=== PATIENT | male | born 1955 | race Caucasian/White ===

== ENCOUNTER 2017-05-07 11:08 | Inpatient (IN) | payer SELFPAY ==
[~2017-05-07] VITALS: Ht 182.9 cm; Wt 96.1 kg
--- NOTE | ~2017-05-07 | OR ---
[facility] [address] [place] [address] Draft DATE OF PROCEDURE: 05/11/2017 at around 8 a.m. PROCEDURE Secondary closure of open appendectomy incision. INDICATIONS FOR PROCEDURES To assist with earlier healing in a patient who is now starting to turn the corner and looks like he will be discharged in a few days. DESCRIPTION OF PROCEDURE Informed consent was obtained. I took the old dressings out and then I used Betadine swab sticks to gently wipe the skin and the inside of the wound and once that was done, I numbed him up with 1% Xylocaine with Epinephrine, a total of about 16 mL and after that was done, I put sterile gloves on and secured to pre-placed 2-0 nylon aan-[id number]-fpfo-near suture serially. Once I did that, I used half-inch Steri-Strips also to help get skin apposition, put dry dressings on and then I told the nurses to rub the wound with Betadine b.i.d. We will see how this works for secondary closure and hopefully, this will achieve earlier healing and less wound care for the nursing staff and less frustration for the patient. Estimated blood loss was .5 mL. Sponge and needle counts were completed and correct before closing the wound. He should do well from this secondary closure. MD GUIDO Lakhani/Cy /[id number] cc: Dejuan Panchal MD PATIENT NAME: MERCY BAIRD OPERATIVE REPORT DATE OF : 53 PHYSICIAN: MANJINDER ROSA MD REPORT #: [id number] REPORT IS CONFIDENTIAL AND NOT TO BE RELEASED WITHOUT AUTHORIZATION
[~2017-05-07 11:08] MED LIST: ACULAR1 DROP OD; NORCO 5-325 TA1 EACH PO; PERCOCET 5-3251 EACH PO; TOBRAMYCIN5 ML OD; ZOVIRAX800 MG PO
[2017-05-08] MEDS ORDERED: ADVIL200 MG PO (11:14)
[2017-05-08] MEDS ORDERED: DAILY MULTIPLE1 EACH PO (11:14)
--- NOTE | 2017-05-08 15:05 | EKG ---
[facility] [address] [facility] [place] [address] Signed Sinus rhythm with blocked premature atrial complexes Otherwise normal ECG No previous ECGs available Confirmed by LEONARDA BARRAZA MD ([id number]) on 05/08/2017 3:04:53 PM Electronically Signed By: LEONARDA BARRAZA MD 05/08/17 1505 PATIENT NAME: MERCY BAIRD Electrocardiogram DATE OF : 53 PHYSICIAN: LEONARDA BARRAZA MD REPORT #: [id number] REPORT IS CONFIDENTIAL AND NOT TO BE RELEASED WITHOUT AUTHORIZATION
--- NOTE | 2017-05-12 06:46 | PN ---
[facility] [address] [place], [place] [address] Signed DATE OF SERVICE: 05/08/2017 This is a fellow who is in his early 60s and had advanced appendicitis yesterday through an open procedure and he had a little bit of complicated appendix. I thought he had pus in there, we cultured it, though his gram smears had no organisms. The cultures to date have no growth. He did have a leukocytosis and it looked like pus and also advanced appendicitis retrocecal. Overnight, he has done okay. He has been afebrile and his blood pressure was 122/67, pulse is 74, and he has been afebrile since surgery and his SaO2 is 96%, he is on 2 L nasal oxygen. His labs showed that his white count is 12.5, down from 14.5 with 89% neutrophils and it was 83% yesterday. Hematocrit 41, down from 50. I think he is a little bit dry going into this, platelet count is 137,000, was 202,000 and there is no evidence of bleeding out of his drain and his urine output looked a little bit slow. Over the day, he has put out 175, put down basically about 4 0 an hour, but I have run him at 200 an hour during the day for a liter, now we are going to cut him back to 150 and just watch him. The rest of his labs were reviewed. His sodium was 136, potassium 4.0, BUN 16, down from 21, creatinine 1 and his glucose was 135. His chem panel shows calcium to be 8 and the alk phos to be 25, total bili 1.2. He seems a little bit distended. His wound looks fine. I have done two dressing changes on him today and that is why I waited until to dictate this afternoon. This morning, had a little bit of capillary bleed from the fat, but that has stopped. All seems to be doing okay. He seems a little bit distended. He is not hungry and I am not going to feed him. He is ambulating well, doing incentive spirometry. This is basically a waiting game for his intestine to open up and to catch up his I's and O's. He may have been dehydrated going into this plus a little bit of advanced appendicitis could have stirred some bugs up. He is on Zosyn and Flagyl and I will add lactobacillus to him one pill b.i.d. with a sip of water. He is on Maalox. He is on Reglan and pain management. Basically, this is a waiting game and see where things go from here. I did tell the nurses if he were to vomit, to call me, other than that, I will be watching him every 3 to 4 hours until return him for the evening today and I am going to leave his Mckeon in for the time being and we also will start him probably on Lovenox 40 mg a day, start at 1700 tonight. MD GUIDO Lakhani/Cy /[id number] CC: Electronically Signed By: MANJINDER ROSA MD 05/12/17 0646 PATIENT NAME: MERCY BAIRD PROGRESS NOTE DATE OF : 53 PHYSICIAN: MANJINDER ROSA MD REPORT #: [id number] REPORT IS CONFIDENTIAL AND NOT TO BE RELEASED WITHOUT AUTHORIZATION [facility] [address] [place] [address] Signed Electronically Signed By: MANJINDER ROSA MD 05/12/17 0646 PATIENT NAME: BRIEMERCY PROGRESS NOTE DATE OF : 53 PHYSICIAN: MANJINDER ROSA MD REPORT #: [id number] REPORT IS CONFIDENTIAL AND NOT TO BE RELEASED WITHOUT AUTHORIZATION
--- NOTE | 2017-05-12 06:46 | OR ---
[facility] [address] [place], [place] [address] Signed DATE OF PROCEDURE: 05/07/17 PREOPERATIVE DIAGNOSIS: Appendicitis, possibly advanced. POSTOPERATIVE DIAGNOSIS: Probably ruptured appendix with pus in his pelvis. OPERATION: Open appendectomy. SURGEON: Manjinder Pinzon MD. ASSISTANTS: maintenance shop technician and circulating nurse. INDICATIONS FOR PROCEDURE Clinical diagnosis of appendicitis with leukocytosis. CT evidence is the same. Fluid in his pelvis. [place] that he needed this done. PROCEDURE Informed consent was obtained. He was taken to the operating room. Given a general anesthetic. He had been given Zosyn and Flagyl preoperatively. I told them to go ahead and give him another gram of Ancef when they would put him to sleep and shaved him, prepped and draped him in a sterile fashion. Appropriate time-out was accomplished. I then made a right lower quadrant McBurney type incision through the skin and subcutaneous tissue down to the rectus fascia, which was incised in a rear extension and external oblique fascia laterally. That time, I teased the rectus muscle medially. Entered the peritoneal cavity, got some yucky, pussy-looking material and cultured it. Irrigated a little bit, suctioned it out and then started working on exposure. Ended up having to extend the incision laterally about another inch and cut the muscles because this was a retrocecal appendix and it was kind of stuck and I had to free up the cecum a little bit from its peritoneal attachments in order to get to the appendix base. Did all that, took down the peritoneum with Bovie cautery and right angle clamp and Hemoclips and then I took down the mesoappendix with Hemoclips and Bovie cautery. Put 2 Hemoclips on to stay inside until I got down to the base of the appendix, which was nice and clean. I took a TA33.5 staplers, stapled across the base of the appendix. Fired it, held it for about 30 seconds. Put the clamp on the appendix, cut it all widely, bovied down the appendiceal stump and then inverted that stump with 3-0 oblique silk Lembert sutures. Irrigated everything inside through about 300 mL of saline. Inspected to make sure everything was nicely hemostatic. I then put a ribbon drain down into his pelvis. Put the sump sucker down and suctioned some yucky stuff and irrigated with another half-liter of saline or 750 mL of saline until that was coming out pretty clean. Made sure all my packs were out and then irrigated everything inside again. I then looked at the operative site, did not see any bleeding. I closed the posterior fascia peritoneum with 0 Vicryl on a UR needle after I put a 10-Primo drain in, but this was much smaller Electronically Signed By: MANJINDER PINZON MD 05/12/17 0646 PATIENT NAME: MERCY BAIRD OPERATIVE REPORT DATE OF : 53 PHYSICIAN: MANJINDER PINZON MD REPORT #: [id number] REPORT IS CONFIDENTIAL AND NOT TO BE RELEASED WITHOUT AUTHORIZATION [facility] [address] [place], [place] [address] Signed than oblique drains I am used to seeing and I think we need to figure out drains in the future, but anyhow, put that in along the right gutter down towards the pelvis, secured that with 3-0 silk that was through a separate stab wound and then I irrigated with antibiotic solution, a gram of Ancef and a couple of 100 mL of saline before I did the second fascial closure of 0 Vicryl on a UR needle. Once I got that secured, tied to itself, I irrigated with antibiotics again. Did not feel we should close the skin. Put 2-0 nylon on FSLX suture btm-fya-ogpr-near, sutures in and put Hemoclips on those. Packed the wound with wrung out moist saline and then put in an antibiotic solution again. Two of them in the wound couple of dry ones on top, ABD on top and then I put tape on the belly, so I could tape through the tape, it did not have gum or strap here apparently and told to hook drain up the suction and went to recovery room, explained everything to the nurses. Told to leave the Mckeon in, told to keep him on oxygen. Wrote his postop orders. Estimated blood loss was probably 5 mL, 10 at the very most. Sponge and needle counts were inspected for and reported to be correct multiple times. He tolerated it well. I will leave the Mckeon into night in case I stirred any bacteria, doing this if there was pus down in there. With a little bit of luck he will get well and might be home in 3-4 days. MD GUIDO Lakhani/Cy /[id number] cc: Dejuan Panchal MD Electronically Signed By: MANJINDER PINZON MD 05/12/17 0646 PATIENT NAME: MERCY BAIRD OPERATIVE REPORT DATE OF : 53 PHYSICIAN: MANJINDER PINZON MD REPORT #: [id number] REPORT IS CONFIDENTIAL AND NOT TO BE RELEASED WITHOUT AUTHORIZATION
--- NOTE | 2017-05-12 06:46 | PN ---
[facility] [address] [place], [place] [address] Signed DATE OF SERVICE: 05/09/2017 SUBJECTIVE: This is a fellow who is now about 48 hours postop appendectomy for advanced appendicitis. I thought he had pus in there. We cultured it, and he is growing a light growth of lactose medical receptionist susceptibility to follow. His gram smears did not show anything and his anaerobic so far has no growth. He has not had an easy postop course, in that he has abdominal distention, bowel tones were scant, drains has put out serous fluid. Wound is doing okay with open wound care. I have been checking his urine, I did that mostly yesterday. He has been afebrile, his pulse has been 75, 74, 79; respiratory rate 16; SaO2 is 95; blood pressure 135/82. His labs are reviewed and sodium was 134, potassium 3.9, BUN 13, creatinine 0.9. White count is 13.4 with 86% neutrophils that is a little bit up from yesterday, yesterday was in the 12 range, but I should say we have been chasing his urine, I think we are little behind on volume. He came in with hematocrit of 50. Again, he does not act toxic, but he just not get well over this. Again, acute abdomen series this morning, which shows some dilated small bowel. There is some air in his transverse colon. He is belching and he is distended and he has just about no bowel tones. I think he has a postop ileus, which is causing trouble. At the present time, I am going to discontinue his IV narcotics and put him on Toradol 15 mg IV q.6 hours. I will also add some Tylenol, if he has extra pain p.o. I am going to start him on Relistor 12 mg subcu every other day, Maalox down the NG tube and see what happens, maybe we will be able to get an NG tube, we could then decompress, it will be little bit more comfortable and hopefully this resolves on its own. Hopefully, we can get some sensitivity from the lab for his cultures and I will be having a hospitalist help me with him, just because he has thrown me a little bit of a curve ball. All and all, his wound looks fine, he does not look like he is in the great distress. He says he belches a lot and it hurts when he belches. This is kind of just a frustrating postop situation right now. ASSESSMENT: Postop day #2, complicated appendicitis, apparent ileus, I do not see any free air on x-rays or nothing like that that scares me. We will follow him closely. MD GUIDO Lakhani/Cy /[id number] Electronically Signed By: MANJINDER ROSA MD 05/12/17 0646 PATIENT NAME: MERCY BAIRD PROGRESS NOTE DATE OF : 53 PHYSICIAN: MANJINDER ROSA MD REPORT #: [id number] REPORT IS CONFIDENTIAL AND NOT TO BE RELEASED WITHOUT AUTHORIZATION [facility] [address] [place], [place] [address] Signed CC: Electronically Signed By: MANJINDER ROSA MD 05/12/17 0646 PATIENT NAME: ABHINAVJennMERCY PROGRESS NOTE DATE OF : 53 PHYSICIAN: MANJINDER ROSA MD REPORT #: [id number] REPORT IS CONFIDENTIAL AND NOT TO BE RELEASED WITHOUT AUTHORIZATION
--- NOTE | 2017-05-12 06:46 | HP ---
[facility] [address] [place], [place] [address] Signed DATE OF ADMISSION: 05/07/17 IDENTIFICATION This is a 62-year-old male, who has felt kind of bad since last night, who came to the ER and was evaluated by the ER physician, found to have apparent appendicitis with an elevated white count. Physical exam consistent with appendicitis and white count of 14.5, hematocrit 49, hemoglobin 16, platelets 262, 83% neutrophils. CMP and UA was okay. Coags are pending. Type screen and hold is pending. EKG was done. CT scan shows apparent appendicitis. I went over with the radiologist, little bit fluid in his pelvis and he also has some kind of yucky looking bibasilar in both of his lungs, went back and talked to the patient. He states that he had whooping cough years ago and had a cough for a whole year. This maybe something that is chronic. I certainly did not find anything on physical exam that sounded like pneumonia to me. Anyhow, I will get a PA and lateral chest x-ray prior to taking him to the operating room and we will likely have the hospitalist assist me with his care with that. PAST MEDICAL HISTORY He says he is allergic to nothing. He takes no medicines. He is an undoctored patient. I instructed him and his that at age 62, he ought to have a doctor and he ought to be scoped and ought to have routine medical management. He denies hypertension, diabetes, tuberculosis, seizures, or transfusion. PAST SURGICAL HISTORY He had a left inguinal hernia operation 15 years ago with tonsillectomy and vasectomies for surgical history. SOCIAL HISTORY He does not smoke. Drinks about 1 beer a week. He has no history of thromboembolic disease. He is . 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 His hobbies are working on motorcycles. REVIEW OF SYSTEMS Negative for KS, negative for angina, negative for stroke, negative for lung disease, but once I questioned him, he said he had cough that lasted about a year years ago and he said he had a whooping cough. Negative for GI problems except for the present illness, negative for musculoskeletal problems, negative for problems, negative for skin problem such as psoriasis. Negative for blood problem such as hepatitis. Negative for lymphatic problem, negative for endocrine problem, and negative for neurological problem. PHYSICAL EXAMINATION Electronically Signed By: MANJINDER ROSA MD 05/12/17 0646 PATIENT NAME: MERCY BAIRD HISTORY AND PHYSICAL DATE OF : 53 PHYSICIAN: MANJINDER ROSA MD REPORT #: [id number] REPORT IS CONFIDENTIAL AND NOT TO BE RELEASED WITHOUT AUTHORIZATION [address] [address] Signed VITAL SIGNS: I do not have his vital signs in front of me. His pulse is nice and normal. His blood pressure was okay in the ER. He has had pain medicines on board. HEAD, EYES, EARS, NOSE AND THROAT: Normal. NECK: Without jugular venous distention, masses, or bruits. CHEST: Clear to me. HEART: Regular rate and rhythm without rubs, gallops, or murmurs. ABDOMEN: Scaphoid. He has right lower quadrant tenderness and guarding at Sri's point. RECTAL: I did not do a rectal exam. : We will do the exam when he is in the OR, he has his underwear on, we'll put a Mckeon in when I get him in surgery. EXTREMITIES: Pedal pulse exam is normal. NEUROLOGIC: There is no motor, sensory, speech and ambulation. IMPRESSION This is a 62-year-old male with appendicitis. It does not appear ruptured, with a little bit of luck, it would be nonruptured and we will be able to get it out. I think with this odd bibasilar of the lung situation he will probably need to stay overnight, get the hospitalist to look at him, likely this is a chronic problem. I do not think this will keep me out of his belly right now and we are going to give him Zosyn and Flagyl preoperative a ntibiotics. PAR-Q is accomplished by myself with the patient and his in attendance confirming the diagnosis, the recommendation for appendectomy, my preference for open appendectomy, the expected contact of surgery, potential complications, which include, but are not limited to bleeding, infection, , local organ injury, needing further procedures, and my experience with the same, and the fact that I am a [facility] surgeon and I will be working until next Thursday; at which time if he is still here, we would have to pass him off to somebody else and the option of going to another institution if he does not like me or if feels better somewhere else, he decided that he will stay here. I have talked to the power plant operators supervisor and hopefully we will get this started here in the next hour. MD GUIDO Lakhani/Cy /[id number] Electronically Signed By: MANJINDER ROSA MD 05/12/17 0646 PATIENT NAME: MERCY BAIRD HISTORY AND PHYSICAL DATE OF : 53 PHYSICIAN: MANJINDER ROSA MD REPORT #: [id number] REPORT IS CONFIDENTIAL AND NOT TO BE RELEASED WITHOUT AUTHORIZATION [address] [address] Signed cc: Dejuan Panchal MD Electronically Signed By: MANJINDER ROSA MD 05/12/17 0646 PATIENT NAME: MERCY BAIRD HISTORY AND PHYSICAL DATE OF : 53 PHYSICIAN: MANJINDER ROSA MD REPORT #: [id number] REPORT IS CONFIDENTIAL AND NOT TO BE RELEASED WITHOUT AUTHORIZATION
[2017-05-15] MEDS ORDERED: NORCO 5-325 TA1 EACH PO (13:30)
[2017-05-15] MEDS ORDERED: IMODIUM A-D2 M2 PO (13:31)
--- NOTE | 2017-05-15 14:30 | DS ---
[facility] [address] [place], [place] [address] Signed DATE OF DISCHARGE: 05/15/17 FINAL DIAGNOSIS: Ruptured appendicitis. PROCEDURE: Open appendectomy. HISTORY OF PRESENT ILLNESS Garfield is a 62-year-old gentleman who had come to the emergency room with right lower quadrant abdominal pain. He had been evaluated by our ER physician including a CT scan. He was taken directly to the operating room by our locum surgeon, Dr. Pinzon. He underwent a standard open appendectomy. A small drain was left in place. The abdominal musculature was closed, but the skin and subcutaneous fat had been left open for couple of days. He was maintained on his Zosyn and Flagyl. Dr. Pinzon closed the wound after a couple of days. Garfield took quite a bit of IV fluids as his small intestine soaked up all the extra fluid. Eventually, he started to reverse the fluid. He regained his GI function and he was having voluminous amounts of liquid diarrhea for a couple of days, now that slowed down substantially. He has been off his antibiotic for 24 hours and he is doing quite well. He is tolerating a regular diet, ambulating in the hallways, and taking minimal amounts of pain medication. His incision is healing well without any local signs or symptoms of infection. The drain site is also dry at this point, and there are no local signs or symptoms of infection. Due to his progress here, we are going to be discharging him to home. DISCHARGE PLANS AND MEDICATIONS Garfield will be discharged home with a prescription for [place] 5/325 one-two tablets p.o. q.4-6 hour p.r.n. pain. We will dispense 60 tablets with no refills. He is welcome to try a little Imodium for his diarrhea, but his bowel will recover on its own and he should not need that. He has been using some adult Depends with respect to diarrhea and that has worked out fine. He should not do any heavy pushing, pulling, or lifting over 20 pounds for the next month. He is allowed to lift up to 50 pounds second month, and after that, no restrictions. 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 He can continue his regular diet. He asked me about riding motorcycles and that is out of the question for 2 months along with horses, any boating or other similar activities. We are going to leave his nylon sutures in place. We will have him back in the office in 5-7 days for follow-up. He has expressed understanding and agrees to above plan. Shabnam Oh MD Electronically Signed By: SHABNAM OH MD 05/15/17 1430 PATIENT NAME: GARFIELD BAIRD DISCHARGE SUMMARY DATE OF : 53 PHYSICIAN: SHABNAM OH MD REPORT #: [id number] REPORT IS CONFIDENTIAL AND NOT TO BE RELEASED WITHOUT AUTHORIZATION [facility] [address] [place], [place] [address] Signed /Cy /[id number] cc: Dr. Dejuan Panchal Electronically Signed By: SHABNAM OH MD 05/15/17 1430 PATIENT NAME: GARFIELD BAIRD DISCHARGE SUMMARY DATE OF : 53 PHYSICIAN: SHABNAM OH MD REPORT #: [id number] REPORT IS CONFIDENTIAL AND NOT TO BE RELEASED WITHOUT AUTHORIZATION
== END 2017-05-15 14:18 | disposition home or self-care (01) | DRG 339 ==
LOC: ED 11:08 → MS 15:25 → CCU 05-10 10:40 → MS 05-12 13:15
PROVIDERS: ADMIT Surgery
PROC: 0DTJ0ZZ Resection of Appendix, Open Approach (ICD-10-PCS; principal; 2017-05-07 15:30)
PROC: 0HQ7XZZ Repair Abdomen Skin, External Approach (ICD-10-PCS; 2017-05-11)
DX: K35.3 Acute appendicitis with localized peritonitis (principal); K91.3 Postprocedural intestinal obstruction; E86.0 Dehydration; R91.8 Other nonspecific abnormal finding of lung field; B96.20 Unspecified Escherichia coli [E. coli] as the cause of diseases classified elsewhere
CPT/HCPCS: 00840; 36415; 71020; 74022; 74177; 80048; 80053; 81001; 82150; 83605; 83690; 83735; 83880; 84100; 85025; 85610; 85730; 86850; 86900; 86901; 87045; 87046; 87070; 87075; 87077; 87177; 87186; 87205; 87209; 87493; 93005; 93010; 94762; 96361; 96365; 96368; 96375; 96376; 99285; J0690; J1170; J1450; J1650; J1885; J2212; J2405; J2543; J2704; J2765; J3010; J3480; J7030; J7040; J7060; J7120; Q9967

== ENCOUNTER 2019-06-20 22:32 | Emergency (ER) | payer MEDICARE, OTHER ==
[~2019-06-20] VITALS: Ht 182.9 cm; Wt 96.1 kg
--- OUTSIDE RECORDS SUMMARY | ~2019-06-20 | XMS | Clinical Summary ---
Demographics + + + | Address | [address] | | | [place] [address] | + + + | Home Phone | | + + + | Preferred Language | Unknown | + + + | Marital Status | | + + + | Yarsanism Affiliation | Unknown | + + + | Race | Unknown | + + + | Ethnic Group | Unknown | + + + Author + + + | Author | [facility] | | | and [place] | + + + | Organization | [facility] | | | and [place] | + + + | Address | Unknown | + + + | Phone | Unavailable | + + + Support + + +---------+ + | Name | Relationship | Address | Phone | + + +---------+ + | MIRANDA BAIRD | ECON | Unknown | | + + +---------+ + Care Team Providers + +------+ + | Care Customer Support Technician Name | Role | Phone | + +------+ + PCP | Unavailable | + +------+ + Allergies Not on File Medications Not on file Active Problems Not on file Social History + +-------+ +--------+------+ | Tobacco Use | Types | Packs/Day | Years | Date | | | | | Used | | + +-------+ +--------+------+ | Never Assessed | | | | | + +-------+ +--------+------+ + + + | Sex Assigned at | Date Recorded | | | | + + + | Not on file | | + + + + + + + | Job Start Date | Occupation | Industry | + + + + | Not on file | Not on file | Not on file | + + + + + + + + | Travel History | Travel Start | Travel End | + + + + + + | No recent travel history available. | + + Last Filed Vital Signs Not on file Plan of Treatment + + + + + | Health Maintenance | Due Date | Last Done | Comments | + + + + + | Vaccine: | | | | | Dtap/Tdap/Td (1 - | 3 | | | | Tdap) | | | | + + + + + | Vaccine: Zoster (1 | | | | | of 2) | 4 | | | + + + + + | Vaccine: | | | | | Pneumococcal 65+ | 9 | | | | Low/Medium Risk (1 | | | | | of 2 - PCV13) | | | | + + + + + | Vaccine: Influenza | | | | | (#1) | 9 | | | + + + + + Results Not on filefrom Last 3 Months"
--- OUTSIDE RECORDS SUMMARY | ~2019-06-20 | XMS | Encounter Summary ---
Demographics + + + | Address | [address] | | | [place] [address] | + + + | Home Phone | | + + + | Preferred Language | Unknown | + + + | Marital Status | Single | + + + | Sikhism Affiliation | Unknown | + + + | Race | Unknown | + + + | Ethnic Group | Other Race | + + + Author + + + | Author | [facility] | + + + | Organization | [facility] | + + + | Address | Unknown | + + + | Phone | Unavailable | + + + Support + + +---------+ + | Name | Relationship | Address | Phone | + + +---------+ + | None None | ECON | Unknown | Unavailable | + + +---------+ + Care Team Providers + +------+ + | Care Aviation Support Equipment Repairer Name | Role | Phone | + +------+ + PCP | Unavailable | + +------+ + Encounter Details +--------+ + + + + | Date | Type | Department | Care Team | Description | +--------+ + + + + | 06/20/ | Ancillary | [facility] Faculty | | | | 2004 | Registratio | Practice [address] | | | | | n | [facility] | | | | | | [place] [address] | | | | | | [phone] | | | +--------+ + + + + Social History + +-------+ +--------+------+ | Tobacco [...] recent travel history available. | + + documented as of this encounter Plan of Treatment Not on filedocumented as of this encounter Visit Diagnoses Not on filedocumented in this encounter"
--- OUTSIDE RECORDS SUMMARY | ~2019-06-20 | XMS | Encounter Summary ---
Demographics + + + | Address | [address] | | | [place] [address] | + + + | Home Phone | | + + + | Preferred Language | Unknown | + + + | Marital Status | Single | + + + | Congregation Affiliation | Unknown | + + + | Race | Unknown | + + + | Ethnic Group | Other Race | + + + Author + + + | Author | [facility] | + + + | Organization | [facility] | + + + | Address | Unknown | + + + | Phone | Unavailable | + + + Support + + +---------+ + | Name | Relationship | Address | Phone | + + +---------+ + | None None | ECON | Unknown | Unavailable | + + +---------+ + Care Team Providers + +------+ + | Care Tissue Coordinator Name | Role | Phone | + +------+ + PCP | Unavailable | + +------+ + Reason for Visit +--------+ + | Reason | Comments | +--------+ + | Other | Post OP Ruptured Appendicitis | +--------+ + Encounter Details +--------+ + + + + | Date | Type | Department | Care Team | Description | +--------+ + + + + | 05/10/ | Emergency | [facility] Emergency | | | | 2016 | | Department [address] | | | | | | [address] | | | | | | [facility] | | | | | | [place], [place] | | | | | | [address] | | | | | | [phone] | | | +--------+ + + + [...]
--- OUTSIDE RECORDS SUMMARY | ~2019-06-20 | XMS | Encounter Summary ---
Demographics + + + | Address | [address] | | | [place] [address] | + + + | Home Phone | | + + + | Preferred Language | Unknown | + + + | Marital Status | Single | + + + | Gnosticist Affiliation | Unknown | + + + | Race | Unknown | + + + | Ethnic Group | Other Race | + + + Author + + + | Author | [facility] | + + + | Organization | [facility] | + + + | Address | Unknown | + + + | Phone | Unavailable | + + + Support + + +---------+ + | Name | Relationship | Address | Phone | + + +---------+ + | None None | ECON | Unknown | Unavailable | + + +---------+ + Care Team Providers + +------+ + | Care Mounter Name | Role | Phone | + [...] + + | 05/10/ | Emergency | [facility] Emergency | | | | 2016 | | Department [address] | | | | | | [address] | | | | | | [facility] | | | | | | [place], [place] | | | | | | [address] | | | | | | [phone] | | | +--------+ + + + [...]
--- OUTSIDE RECORDS SUMMARY | ~2019-06-20 | XMS | Clinical Summary ---
Demographics + + + | Address | [address] | | | [place] [address] | + + + | Home Phone | | + + + | Preferred Language | Unknown | + + + | Marital Status | Single | + + + | Yarsanism Affiliation | Unknown | + + + | Race | Unknown | + + + | Ethnic Group | Other Race | + + + Author + + + | Author | [facility] | + + + | Organization | [facility] | + + + | Address | Unknown | + + + | Phone | Unavailable | + + + Support + + +---------+ + | Name | Relationship | Address | Phone | + + +---------+ + | None None | ECON | Unknown | Unavailable | + + +---------+ + Care Team Providers + +------+ + | Care Ecommerce Manager Name | Role | Phone | + +------+ + PCP | Unavailable | + +------+ + Source Comments [facility] is fully live on both [facility] Ambulatory and [facility] InPatient.[facility] Allergies Not on File Medications Not on [...] | + + + + + | Pneumococcal | | | | | vaccination (1 of 2 | 9 | | | | - PCV13) | | | | + + + + + | Influenza (Flu) | | | | | vaccination (#1) | 9 | | | + + + + + Results Not on filefrom Last 3 Months Insurance +-------+--------+ +--------+ + +------+ | Payer | Benefi | Subscriber | Effect | Phone | Address | Type | | | t Plan | ID | urban | | | | | | / | | Dates | | | | | | Group | | | | | | +-------+--------+ +--------+ + +------+ | MODA | MODA | [phone] | 09/14/19 | [phone] | [address] | PPO | | | [employer] | | 05-Pre | 4 | [phone] | | | | [place] | | sent | | [place], | | | | | | | | [place] [address] | | +-------+--------+ +--------+ + +------+ + +--------+ +--------+ + + | Guarantor Name | Accoun | Relation to | Date | Phone | Billing Address | | | t Type | Patient | of | | | | | | | | | | + +--------+ +--------+ + + | Garfield Hughes | Person | Self | [birth year] | [address] | | | al/Fam | | 1955 | [phone] | [place] [address] | | | coy | | | 3 (Home) | | + +--------+ +--------+ + +"
--- OUTSIDE RECORDS SUMMARY | ~2019-06-20 | XMS | Clinical Summary ---
Demographics + + + | Address | [address] | | | [place] [address] | + + + | Home Phone | | + + + | Preferred Language | Unknown | + + + | Marital Status | Single | + + + | Advent Affiliation | Unknown | + + + [...] Team Providers + +------+ + | Care Classer Name | Role | Phone | + +------+ + PCP | Unavailable | + +------+ + Source Comments [facility] is fully live on both [facility] Ambulatory and [facility] InPatient.[facility] Allergies Not on File Medications Not on [...] | MODA | [phone] | 09/14/19 | [phone] | [address] | PPO | | | [place] | | 05-Pre | 4 | [phone] | | | | [place] | | sent | | [place], | | | | | | | | [place] [address] | | +-------+--------+ +--------+ + +------+ + [...] | | al/Fam | | 1955 | [phone] | [place] [address] | | | coy | | | 3 (Home) | | + +--------+ +--------+ + +"
--- OUTSIDE RECORDS SUMMARY | ~2019-06-20 | XMS | Encounter Summary ---
Demographics + + + | Address | [address] | | | [place] [address] | + + + | Home Phone | | + + + | Preferred Language | Unknown | + + + | Marital Status | Single | + + + | Mormon Affiliation | Unknown | + + + | Race | Unknown | + + + | Ethnic Group | Other Race | + + + Author + + + | Organization | Unknown | + + + | Address | Unknown | + + + | Phone | Unavailable | + + + Support + + +---------+ + | Name | Relationship | Address | Phone | + + +---------+ + | None None | ECON | Unknown | Unavailable | + + +---------+ + Care Team Providers + +------+ + | Care Floor Care Specialist Name | Role | Phone | + +------+ + PCP | Unavailable | + +------+ + Encounter Details +--------+ + + + + | Date | Type | Department | Care Team | Description | +--------+ + + + + | 06/12/ | Results | | Other, Faculty | | | 2004 | Only | | [phone] | | +--------+ + + + + [...] Not on filedocumented as of this encounter Procedures + +--------+ + + + | Procedure Name | Priori | Date/Time | Associated Diagnosis | Comments | | | ty | | | | + +--------+ + + + | DERMATOPATHOLOGY(WET | Routin | 06/12/2005 | | Results for this | | [facility]) | e | | | procedure are in the | | | | | | results section. | + +--------+ + + + documented in this encounter Results DERMATOPATHOLOGY(WET [facility]) (06/12/2005) + + + + + + | Component | Value | Ref Range | Performed | Pathologist | | | | | At | Signature | + + + + + + | DERMATOPATH | SOURCE OF SPECIMEN:A | | | | | OLOGY(WET | FIRST TISSUE LEVEL | | | | | [place]) | [place] [id number] CLINICAL | | | | | | DESCRIPTION:Excision, | | | | | | lower back; irreg. | | | | | | pigmented patch; | | | | | | compound nevus; R/O | | | | | | melanoma. GROSS | | | | | | DESCRIPTION:Lower back, | | | | | | ellipse, 2.7 x 1.1 x 0.7 | | | | | | cm, inked, eight | | | | | | segments, | | | | | | threecassettes. | | | | | | MICROSCOPIC | | | | | | DESCRIPTION:There is a | | | | | | broad, fairly well | | | | | | circumscribed and | | | | | | symmetrical | | | | | | melanocyticneoplasm | | | | | | characterized primarily | | | | | | by numerous small round | | | | | | to oval nests ofvarying | | | | | | size and a few single | | | | | | melanocytes along the | | | | | | basal layer | | | | | | ofhyperplastic rete | | | | | | ridges. The | | | | | | melanocytic nuclei are | | | | | | small and | | | | | | relativelyuniform and | | | | | | most of the cells have | | | | | | pale cytoplasm. There | | | | | | are a fewcollections of | | | | | | similar appearing | | | | | | melanocytes in the | | | | | | fibrotic, thickened,and | | | | | | inflamed papillary | | | | | | dermis. 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 | | | | | | ZEB/jyi06/17/05Rendering | | | | | | Diagnostician: Mark Anthonyo | | | | | | n Mel Murray Jr., | | | | | | Stephaniei | | | | | | jaki Signed 06/17/2005 | | | | + + + + + + + + | Specimen | + + | | + + + + + | Narrative | Performed At | + + + | Ordered wes Hassan | | + + + + + + + + | Performing | Address | City/State/Zipcode | Phone Number | | Organization | | | | + + + + + | [facility] | [address], [address] | [place] [address] | | | DERMATOPATHOLOGY | Ariel Burks | | | + + + + + documented in this encounter Visit Diagnoses Not on filedocumented in this encounter"
--- OUTSIDE RECORDS SUMMARY | ~2019-06-20 | XMS | Encounter Summary ---
Demographics + + + | Address | [address] | | | [place] [address] | + + + | Home Phone | | + + + | Preferred Language | Unknown | + + + | Marital Status | Single | + + + | Yazdanism Affiliation | Unknown | + + + | Race | Unknown | + + + | Ethnic Group | Other Race | + + + Author + + + | Author | [facility] | + + + | Organization | [facility] | + + + | Address | Unknown | + + + | Phone | Unavailable | + + + Support + + +---------+ + | Name | Relationship | Address | Phone | + + +---------+ + | None None | ECON | Unknown | Unavailable | + + +---------+ + Care Team Providers + +------+ + | Care Cold Working Supervisor Name | Role | Phone | + +------+ + PCP | Unavailable | + +------+ + Encounter Details +--------+ + + + + | Date | Type | Department | Care Team | Description | +--------+ + + + + | 06/20/ | Ancillary | [facility] Faculty | | | | 2004 | Registratio | Practice [address] | | | | | n | [facility] | | | | | | [place] [address] | | | | | | [phone] | | | +--------+ + + + [...]
--- OUTSIDE RECORDS SUMMARY | ~2019-06-20 | XMS | Encounter Summary ---
Demographics + + + | Address | [address] | | | [place] [address] | + + + | Home Phone | | + + + | Preferred Language | Unknown | + + + | Marital Status | Single | + + + | Samaritan Affiliation | Unknown | + + + [...] Team Providers + +------+ + | Care Wound/Ostomy Nurse Name | Role | Phone | + +------+ + PCP | Unavailable | + +------+ + Encounter Details +--------+ + + + + | Date | Type | Department | Care Team | Description | +--------+ + + + + | 06/12/ | Results | | Other, Faculty | | | 2004 | Only | | [phone] | | +--------+ + + + + [...] | | | | MNT) | [place] [id number] CLINICAL | | | | | | [...] [facility] | [address], [address] | [place] [address] | | | DERMATOPATHOLOGY | Ariel Burks | | | + + + + + documented in this encounter Visit Diagnoses Not on filedocumented in this encounter"
--- OUTSIDE RECORDS SUMMARY | ~2019-06-20 | XMS | Clinical Summary ---
Demographics + + + | Address | [address] | | | [place] [address] | + + + | Home Phone | | + + + | Preferred Language | Unknown | + + + | Marital Status | | + + + | Confucianism Affiliation | Unknown | + + + | Race | Unknown | + + + | Ethnic Group | Unknown | + + + Author + + + | Author | [facility] | | | and [place] | + + + | Organization | [facility] | | | and [place] | [...] Team Providers + +------+ + | Care Legal Aid Name | Role | Phone | + [...]
[~2019-06-20 22:32] MED LIST changes: +ADVIL200 MG PO; +DAILY MULTIPLE1 EACH PO; +IMODIUM A-D2 M2 PO
== END 2019-06-20 23:15 | disposition home or self-care (01) ==
LOC: ED 22:32
PROC: 3E0T3BZ Introduction of Anesthetic Agent into Peripheral Nerves and Plexi, Percutaneous Approach (ICD-10-PCS; principal; 2019-06-20)
DX: S61.211A Laceration without foreign body of left index finger without damage to nail, initial encounter (principal); W26.0XXA Contact with knife, initial encounter
CPT/HCPCS: 64450; 90471; 90715; 99282-25

== ENCOUNTER 2021-06-28 21:12 | Emergency (ER) | payer OTHER, MEDICARE ==
[~2021-06-28] VITALS: Ht 182.9 cm; Wt 98.0 kg
== END 2021-06-29 01:14 | disposition home or self-care (01) ==
LOC: ED 21:12
DX: S20.211A Contusion of right front wall of thorax, initial encounter (principal); V43.52XA Car driver injured in collision with other type car in traffic accident, initial encounter
CPT/HCPCS: 71101; 99284-25

== ENCOUNTER 2022-06-16 14:52 | Emergency (ER) | payer MEDICARE, OTHER ==
[~2022-06-16] VITALS: Ht 182.9 cm; Wt 98.0 kg
--- NOTE | 2022-06-20 20:43 | EKG ---
[facility] [address] [facility] [place] [address] Signed Normal sinus rhythm Normal ECG When compared with ECG of 07-MAY-2017 14:19, premature atrial complexes are no longer present Confirmed by Joyce Coley MD () on 06/20/2022 8:43:24 PM Electronically Signed By: JOYCE COLEY MD 06/20/222042 PATIENT NAME: MERCY BAIRD Electrocardiogram DATE OF : 53 PHYSICIAN: JOYCE COLEY MD REPORT #: [id number] REPORT IS CONFIDENTIAL AND NOT TO BE RELEASED WITHOUT AUTHORIZATION
== END 2022-06-16 18:48 | disposition home or self-care (01) ==
LOC: ED 14:52
DX: R41.0 Disorientation, unspecified (principal)
CPT/HCPCS: 36415; 70450; 80053; 81001; 84443; 84484; 85025; 93005; 93010; 99285-25

== ENCOUNTER 2025-03-10 06:56 | Day surgery (SDC) | payer MEDICARE, OTHER ==
[2025-03-06 08:28] VITALS: BP 140/88
[~2025-03-10] VITALS: Ht 182.9 cm; Wt 93.0 kg
[~2025-03-10 06:56] MED LIST changes: +LACTATED RINGER'S 1,000 ML IV SCH; +MAG-TAB SR84 MG PO; +MULTIVITAMIN1 EACH PO; +PROBIOTIC 2 BI1 EACH PO
[2025-03-10] MEDS ORDERED: CEFAZOLIN SODIUM 2 GM/20 ML SYR IV SCH (07:00)
[2025-03-10] MEDS ORDERED: LIDOCAINE HCL 1% 5 ML SDV INJ ONE (07:00)
[2025-03-10] MEDS ORDERED: IBLOOD GLUCOSE TEST STRIP 1 EA TEST VI PRN (07:00)
[2025-03-10] MEDS ORDERED: HEParin SOD (PORCINE) 5,000 UNIT/ML SDV SUB-Q SCH (07:00)
[2025-03-10 07:12] VITALS: BP 153/85
[2025-03-10] MEDS ORDERED: ROCURONIUM BROMIDE 50 MG/5 ML SYR ONE ×2 (08:24→09:50)
[2025-03-10] MEDS ORDERED: fentaNYL citrate 100 MCG/2 ML VIAL ONE ×2 (08:24→09:20)
[2025-03-10] MEDS ORDERED: KETOROLAC TROMETHAMINE 30 MG/ML VIAL ONE (08:24)
[2025-03-10] MEDS ORDERED: ondansetron HCL 4 MG/2 ML VIAL ONE (08:24)
[2025-03-10] MEDS ORDERED: LIDOCAINE HCL 2% 5 ML SDV ONE (08:24)
[2025-03-10] MEDS ORDERED: propofoL 200 MG/20 ML VIAL ONE ×2 (08:24→09:37)
[2025-03-10] MEDS ORDERED: DEXAMETHASONE SOD PHOS 4 MG/ML VIAL ONE (08:24)
[2025-03-10] MEDS ORDERED: SUGAMMADEX SODIUM 200 MG/2 ML ML ONE (10:16)
[2025-03-10] MEDS ORDERED: ACETAMINOPHEN 500 MG TAB PO PRN (10:45)
[2025-03-10] MEDS ORDERED: LACTATED RINGER'S 1,000 ML IV SCH (10:45)
[2025-03-10] MEDS ORDERED: OXYCODONE/APAP 7.5/325 TAB PO PRN (10:45)
[2025-03-10] MEDS ORDERED: NALOXONE HCL 0.4 MG SYR IV PRN ×2 (10:45→11:00)
[2025-03-10] MEDS ORDERED: IBUPROFEN 600 MG TAB PO PRN (10:45)
[2025-03-10] MEDS ORDERED: IBUPROFEN600 MG PO (10:47)
[2025-03-10] MEDS ORDERED: ACETAMINOPHEN 1,000 MG/100 ML VIAL ONE (10:47)
[2025-03-10] MEDS ORDERED: fentaNYL citrate 50 MCG/ML SDV ONE (10:47)
[2025-03-10] MEDS ORDERED: OXYCODON-ACETA1 EAC2 PO (10:48)
[2025-03-10] MEDS ORDERED: ACETAMINOPHEN500 MG PO (10:48)
[2025-03-10] MEDS ORDERED: fentaNYL citrate 50 MCG/ML SDV IV PRN (11:00)
[2025-03-10] MEDS ORDERED: ACETAMINOPHEN 1,000 MG/100 ML VIAL IV PRN (11:00)
--- NOTE | 2025-03-10 11:03 | NUR ---
03/10/25 1103 Jackeline Juan 1035- PT PRESENTS TO PACU, RED FACED COUGHING, RESIDENTIAL PROGRAM COORDINATOR SUCTIONING WHITE SPUTUM FROM PT. PT REACTIVE BUT NOT FOLLOWING COMMANDS. O2 AT 8 PER MASK, LR INFUSING TO RW IV. ABD ROUND, SOFT, DRESSING INTACT. ALL MONITORS IN PLACE. 1038- PT BREATHING EVEN, INTERMITTENT COUGHING, AIRWAY INTACT. O2 REMAINS IN PLACE. 1042- PT MOVED TO ROOM AIR, TRYING TO TALK AT THIS TIME, SPEECH SLURRED AND ONLY SOME WORDS UNDERSTOOD. 1050- PT DENIES NAUSEA, C/O ABD BEING SORE 4/10 BUT WOULDN'T TAKE PAIN MEDICATION AT HOME. STARTED WITH TYLENOL IV AT THIS TIME. 1058- MEDICATED WITH FENTANYL 25 MCG IV FOR 5/10 PAIN.
[2025-03-10 11:20] VITALS: BP 129/78
--- NOTE | 2025-03-10 11:20 | NUR ---
1120-PT ARRIVED BACK TO DS ON RA, AAOX3, ANSWERING QUESTIONS APPROPRIATELY, AND ABLE TO MAKE HIS NEEDS KNOWN. VS TAKEN. IV SITE ASSESSED. REPORT RECEIVED FROM RUBBER PRESS TENDER. SURGICAL SITE VISUALIZED WITH RUBBER PRESS TENDER. SMALL AMT OF SANGUINEOUS SHADOWING NOTED ON DRESSING. DRSG REMAINS FIRMLY INTACT. PT EDUCATED ON USING PILLOW OR HAND TO SPLINT ABD INCISION WITH COUGHING, DEEP BREATHING, AND MOVEMENT. PT DEMONSTRATES UNDERSTANDING. AT BEDSIDE. PT REPORTS PAIN 1/10 AND DENIES NAUSEA WHEN ASKED. ALL QUESTIONS ANSWERED. PT PROVIDED PUDDING AND ICE WATER REFILL. BED IN LOW POSITION. WHEELS LOCKED, BILAT RAILS IN PLACE FOR SAFETY. CALL LIGHT WITHIN PT REACH.
[2025-03-10] MEDS ORDERED: SEVOFLURANE 250 ML BTL INH ONE (12:00)
[2025-03-10 12:20] VITALS: BP 128/75
--- NOTE | 2025-03-10 13:00 | NUR ---
1220-INTO PTS ROOM FOR ROUTINE REASSESSMENT. VS TAKEN. IV SITE ASSESSED AND SL'D PT IS TAKING PO FOOD AND FLUIDS WELL W/O ISSUES. PT DENIES CHANGE IN PAIN AND CONT TO RATE PAIN AT 1/10 AND VERBALIZES THIS TO BE TOLERABLE. PT DENIES NAUSEA WHEN ASKED. REMAINS AT PTS BEDSIDE. SURGICAL SITE VISUALIZED AND NO ACUTE CHANGES NOTED FROM INITIAL ASSESSMENT. 1235-PT UP TO RESTROOM TO VOID WITH RN ASSIST FOR SAFETY. PT ABLE TO VOID APPROX 250 ML OF CLR, YELLOW URINE. PT ASSISTED BACK TO ROOM. PT ASSISTED WITH DRESSING FOR DC HOME. SURGICAL SITE VISUALIZED POST AMBULATIOIN AND W/O CHANGES NOTED. 1250-PT AND HIS PROVIDED WITH WRITTEN AND VERBAL DISCHARGE EDUCATION. PT GIVEN RX HARDCOPY FOR PAIN MEDICATION. ALL QUESTIONS ANSWERED AND PT AND HIS VERBALIZED UNDERSTANDING OF INFO GIVEN. 1300- LEFT TO PULL CAR AROUND TO FRONT. IV REMOVED, TIP APPEARS INTACT. PRESSURE DRSG APPLIED WITH GAUZE AND COBAN.
--- NOTE | 2025-03-10 13:05 | NUR ---
PT DISCHARGED FROM DS VIA WC TO PASSENGER SIDE OF WIFES VEHICLE. ALL PERSONAL BELONGINGS TAKEN WITH PT.
--- NOTE | 2025-03-11 10:04 | OR ---
[facility] [address] [place], [place] [address] Signed DATE OF OPERATION: 03/10/2025 SURGEON: Roni Osborn MD PREOPERATIVE DIAGNOSES: 1. Incisional hernia, right lower abdomen. 2. History of complex appendectomy with delayed primary closure of wound (Dr. Pinzon April 2017). POSTOPERATIVE DIAGNOSIS: 1. Incisional hernia, right lower abdomen. 2. History of complex appendectomy with delayed primary closure of wound (Dr. Pinzon April 2017). Fascial defect 7.2 cm. PROCEDURE: Repair of right lower quadrant incisional hernia, 7.2 cm defect with implantation of ProGrip mesh underlay technique. ANESTHESIA: General endotracheal, Willy Brito CRNA and local 10 mL of 0.25% Marcaine without epinephrine. INDICATION: This 69-year-old white man is a patient of [facility] [place]. In 2016, he underwent open appendectomy for advanced appendicitis by Dr. Pinzon, [facility] surgeon. He required open wound care and ultimately had delayed primary closure. Over time, he has developed a bulge in the right lower abdomen directly under the previous right lower quadrant incision. He underwent an ultrasound of the abdominal wall October 18, 2024 for possible hernia and impression was that of partial herniation of a loop of small bowel in the subcutaneous tissue through the underlying fascia. Given its location, consideration was made for spigelian hernia, but indeed more likely to be an incisional hernia from the prior appendectomy incision. He is admitted at this time to undergo repair. He understands the risk of bleeding, infection, and recurrence. FINDINGS: External oblique fascia was certainly well intact. A bulge beneath it was noted. Beneath it was bulging tissue consistent with hernia transgressing the internal oblique and transversus layers. The fascial defect was ultimately measured to be 7.2 cm. The hernia sac had colon most notably directly beneath it. The hernia sac was opened. The Electronically Signed By: RONI OSBORN MD 03/11/25 1004 PATIENT NAME: MERCY BAIRD OPERATIVE REPORT DATE OF : 53 REPORT #: [id number] PHYSICIAN: RONI OSBORN MD PCP: MARIVEL FLORES PA-C REPORT IS CONFIDENTIAL AND NOT TO BE RELEASED WITHOUT AUTHORIZATION [facility] [address] [place], [place] [address] Signed colon itself appeared normal. Repair consisted of reduction of the hernia and hernia sac, development of the properitoneal space circumferentially beneath the fascial layer. Implantation of Prolene mesh in an underlay technique with closure of the fascial layers over it. He tolerated procedure well. DESCRIPTION OF PROCEDURE: The patient was brought to the operating room, given a general endotracheal anesthetic. Preoperative antibiotic Ancef was given. Sequential compression device stockings were used. Lower abdomen was prepared with a chlorhexidine solution after clipping. The previous large right lower quadrant incision was palpated. We had marked the area of maximal bulge in the preoperative area and it was directly beneath the incision itself. A portion of the incision was incised and dissection carried through the subcutaneous tissue with electrocautery. A bulging area of the external oblique was noted. This was incised along its fibers and dissected free from it. This represented the weakness and hernia sac itself. The hernia was dissected free from the internal oblique and ultimately of transversalis layers. It was indeed a distinct fascial defect. The hernia sac was opened revealing the underlying intraabdominal viscera, which dominantly included the colon. The properitoneal space was developed medially, inferiorly, laterally and superiorly. The hernia sac was closed with running 2-0 Vicryl suture. A segment of Prolene mesh was cut to an elliptical configuration and secured into the properitoneal space with interrupted 0 Prolene sutures. Prolene, ProGrip mesh was used, which of course help secure the mesh in the underlay technique well. The fascial layers were reapproximated with interrupted 0 Prolene suture as well. A 10 mL of 0.25% Marcaine was injected locally. The external oblique was reapproximated with running 2-0 Vicryl. Kunal layer was similarly reapproximated with interrupted 2-0 Vicryl. The skin closed with a running subcuticular 3-0 Vicryl. Steri-Strips were applied as was an Acticoat dressing. The patient was extubated in the operating room, taken to recovery room. The patient did have a fair amount of coughing and straining upon extubation, which the mobile manager thought may be related to the sugammadex reversal agent. This cleared completely within 15 minutes of the presentation to the recovery room. Blood loss was minimal. Complications none. Sponge, needle, and instruments counts were reported as correct x3. Roni Osborn MD /OCNRADOL /[id number] Electronically Signed By: RONI OSBORN MD 03/11/25 1004 PATIENT NAME: MERCY BAIRD OPERATIVE REPORT DATE OF : 53 REPORT #: [id number] PHYSICIAN: RONI OSBORN MD PCP: MARIVEL FLORES PA-C REPORT IS CONFIDENTIAL AND NOT TO BE RELEASED WITHOUT AUTHORIZATION [facility] [address] [place] [place] [address] Signed cc: [facility] [place] Copies: ~ Electronically Signed By: RONI OSBORN MD 03/11/25 1004 PATIENT NAME: MERCY BAIRD OPERATIVE REPORT DATE OF : 53 REPORT #: [id number] PHYSICIAN: RONI OSBORN MD PCP: MARIVEL FLORES PA-C REPORT IS CONFIDENTIAL AND NOT TO BE RELEASED WITHOUT AUTHORIZATION
== END 2025-03-10 13:05 | disposition home or self-care (01) ==
LOC: DS 06:56
PROVIDERS: ATTEND Surgery
PROC: 0WUF0JZ Supplement Abdominal Wall with Synthetic Substitute, Open Approach (ICD-10-PCS; principal; 2025-03-10 09:00)
DX: K43.2 Incisional hernia without obstruction or gangrene (principal); Z90.49 Acquired absence of other specified parts of digestive tract
CPT/HCPCS: 00832; C1781; J0131; J0690; J1100; J1644; J1885; J2003; J2405; J2704; J3010; J3490; J7121